=== PATIENT | female | born 1965 | race Caucasian/White ===

== ENCOUNTER → 2016-05-28 | Outpatient (REF) | payer BC | LOC: M LAB REF 14:07 | PROVIDERS: ATTEND Physician Assistant | DX: M79.1 Myalgia (principal) ==

== ENCOUNTER → 2016-05-31 | Outpatient (CLI) | payer BC ==
--- NOTE | 2016-06-01 10:40 | REP ---
Chest x-ray: Two views. History: Cough. Comparison chest x-ray November 09, 2015. Findings: The lungs are symmetrically aerated and clear. Pleural angles are sharp. Heart size is normal. Pulmonary vasculature is not increased. No significant bony abnormality is seen. Impression: Negative chest x-ray. Signed by Enrique Segovia MD 06/01/2016 11:05 A
== END ==
LOC: M WUC 17:57
PROVIDERS: ATTEND Physician Assistant
DX: R05 Cough (principal)

== ENCOUNTER → 2016-06-25 | Outpatient (CLI) | payer BC ==
[2016-06-25 18:12] LABS: BASO % 0.5 % (0.0-1.0); EOS # 0.1 K/mm3 (0.0-0.50); EOS % 1.6 % (0.0-3.0); LYMPH # 1.8 K/mm3 (1.5-4.5); LYMPH % 30.3 % (24.0-44.0); MEAN CORPUSCULAR HEMOGLOBIN 29.5 pg (27.0-33.0); MEAN CORPUSCULAR HGB CONC 33.2 g/dl (32.0-36.5); MEAN CORPUSCULAR VOLUME 88.8 fl (80.0-96.0); MONO # 0.3 K/mm3 (0.0-0.8); NEUTROPHILS # 3.4 K/mm3 (1.8-7.7); NEUTROPHILS % 60.7 % (36.0-66.0); WHITE BLOOD COUNT 5.6 K/mm3 (4.0-10.0)
[2016-06-25 20:35] LABS: IMMUNOGLOBULIN E 20.8 IU/ML (<100); IMMUNOGLOBULIN G 904 MG/DL (681-1648); IMMUNOGLOBULIN M 78.5 MG/DL (40-230)
[2016-07-01 14:12] LABS: ANTI TETANUS ANTIBODY 1.67 IU/mL (<0.10); STREP PNEUMO TYPE 12F <0.3 ug/mL (>1.3); STREP PNEUMO TYPE 18C 2.4 ug/mL (>1.3); STREP PNEUMO TYPE 19A 3.8 ug/mL (>1.3); STREP PNEUMO TYPE 19F 1.6 ug/mL (>1.3); STREP PNEUMO TYPE 23F <0.3 ug/mL (>1.3); STREP PNEUMO TYPE 6B 0.4 ug/mL (>1.3); STREP PNEUMO TYPE 7F 3.6 ug/mL (>1.3); STREP PNEUMO TYPE 9N 6.5 ug/mL (>1.3)
== END ==
LOC: M LAB 16:31
PROVIDERS: ATTEND Allergy & Immunology Allergy
DX: D84.9 Immunodeficiency, unspecified (principal); J30.9 Allergic rhinitis, unspecified

== ENCOUNTER → 2016-09-09 | Outpatient (REF) | payer BC | LOC: M LAB REF 16:22 | PROVIDERS: ATTEND Internal Medicine | DX: J32.9 Chronic sinusitis, unspecified (principal) ==

== ENCOUNTER → 2017-04-12 | Outpatient (CLI) | payer BC ==
--- NOTE | 2017-04-12 10:50 | REP ---
Chest two views HISTORY: Cough Comparison: 05/31/2016 The lungs are clear. The heart is normal in size. The pulmonary vasculature is normal in appearance. The bony structure is intact. IMPRESSION: No acute disease. Signed by Abhinav Gavin MD 04/12/2017 10:41 A
--- NOTE | 2017-04-12 11:15 | REP ---
KUB, ONE VIEW: HISTORY: Right upper quadrant pain. Air is present in small and large intestine. There are no air fluid levels or dilated loops of intestine. There is no pneumoperitoneum. A moderate amount of stool is present in the colon. IMPRESSION: Nonspecific bowel gas pattern. Signed by Abhinav Gavin MD 04/12/2017 12:31 P
[2017-04-12 13:22] LABS: BASO % 0.5 % (0.0-1.0); EOS # 0.1 10^3/uL (0.0-0.50); EOS % 1.9 % (0.0-3.0); IMMATURE GRANULOCYTE % 0.3 % (0-0); LYMPH # 1.5 10^3/uL (1.5-4.5); MEAN CORPUSCULAR HEMOGLOBIN 29.5 pg (27.0-33.0); MEAN CORPUSCULAR VOLUME 86.6 fl (80.0-96.0); MONO # 0.3 10^3/uL (0.0-0.8); NEUTROPHILS # 1.9 10^3/uL (1.8-7.7); NEUTROPHILS % 49.3 % (36.0-66.0); PLATELET COUNT, AUTOMATED 191 10^3/uL (150-450); RED CELL DISTRIBUTION WIDTH 12.9 % (11.5-14.5); WHITE BLOOD COUNT 3.8 10^3/uL (4.0-10.0)
[2017-04-12 13:51] LABS: ALBUMIN 4.4 GM/DL (3.2-5.2); ALBUMIN/GLOBULIN RATIO 1.47 (1.00-1.93); ALKALINE PHOSPHATASE 81 U/L (45-117); ALT/SGPT 45 U/L (12-78); AMYLASE 75 U/L (25-115); ANION GAP 8 MEQ/L (8-16); AST/SGOT 21 U/L (7-37); BILIRUBIN,TOTAL 0.7 MG/DL (0.2-1.0); BLOOD UREA NITROGEN 14 MG/DL (7-18); CALCIUM LEVEL 9.5 MG/DL (8.5-10.1); CARBON DIOXIDE LEVEL 29 MEQ/L (21-32); CHLORIDE LEVEL 105 MEQ/L (98-107); CREATININE FOR GFR 0.89 MG/DL (0.55-1.02); GLOMERULAR FILTRATION RATE > 60.0 (>51); GLUCOSE, FASTING 90 MG/DL (70-105); POTASSIUM SERUM 4.2 MEQ/L (3.5-5.1); SODIUM LEVEL 142 MEQ/L (136-145); TOTAL PROTEIN 7.4 GM/DL (6.4-8.2)
== END ==
LOC: M WUC 10:12
PROVIDERS: ATTEND Physician Assistant
DX: R10.11 Right upper quadrant pain (principal)

== ENCOUNTER → 2017-04-15 | Outpatient (CLI) | payer BC ==
--- NOTE | 2017-04-15 09:35 | REP ---
LIMITED ABDOMINAL ULTRASOUND: 04/15/2017. CLINICAL HISTORY. Right upper quadrant pain. No prior study. FINDINGS: The liver homogeneous in echotexture without focal hepatic mass, intrahepatic biliary dilatation or perihepatic ascites. Gallbladder shows normal wall thickness of 1.1 mm with no stone, sludge, pericholecystic fluid or mass. Common duct is 3.2 mm without a filling defect. Pancreas is somewhat limited in evaluation with gas shadowing obscuring the tail and some mild fatty changes head and neck region. Right kidney 11.5 x 5.5 x 3.9 cm. 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 There is no hydronephrosis. No stone visible. IMPRESSION: 1. Liver, gallbladder and common duct unremarkable. 2. Pancreas seen only in part with some mild fatty change. 3. Right kidney without hydronephrosis or stone. Signed by Munir Gunn MD 04/15/2017 08:27 P
== END ==
LOC: M RAD 07:53
PROVIDERS: ATTEND Physician Assistant
DX: R10.11 Right upper quadrant pain (principal)

== ENCOUNTER → 2017-04-21 | Outpatient (CLI) | payer BC ==
[~2017-04-21] MED LIST: GASTROGRAFIN SOLUTION 30ML (Q9963) As Ordered ONE; ISOVUE-370 76% 100ML VIAL (Q9967) As Ordered ONE
--- NOTE | 2017-04-21 10:49 | REP ---
CT abdomen pelvis without and with IV and bowel contrast: After IV contrast imaging is initially performed during the late arterial / portal venous phase of imaging. Scanning is performed again later during the delayed equilibrium phase of enhancement. Comparison is 08/12/2014. The patient is a history of right breast carcinoma. The visualized lung sheikh are unremarkable. The hepatic parenchyma, gallbladder, pancreas and spleen are normal size, homogeneous unremarkable all phases. The adrenals, kidneys and abdominal aorta are unremarkable on all phases. The bowel and mesentery are unremarkable. There is no bowel distension or obstruction. Pelvis: The uterus and adnexa are unremarkable. There is no ascites or adenopathy. The pelvic bowel loops are unremarkable. There are no lytic, blastic or destructive skeletal changes. Impression: Negative CT study of the abdomen and pelvis. Signed by Roger Haq MD 04/21/2017 10:41 A
== END ==
LOC: M RAD 07:39
PROVIDERS: ATTEND Internal Medicine
DX: R10.9 Unspecified abdominal pain (principal)
CPT/HCPCS: 74178; Q9963; Q9967

== ENCOUNTER → 2017-04-24 | Outpatient (CLI) | payer BC ==
--- NOTE | 2017-04-24 08:56 | REP ---
Soft-tissue neck CT study without contrast: History: Soft tissue swelling, mass and lump in the neck. The patient gives a history of prior breast carcinoma. Comparison soft tissue neck CT study is from January 18, 2016. Findings: Submandibular and parotid glands are normal and symmetric. Thyroid lobes are unremarkable. There is no evidence of suprahyoid or infrahyoid adenopathy or mass. Tonsillar and peritonsillar soft tissues are unremarkable. Visualized paranasal sinuses are clear. No intraorbital abnormality is appreciated. No bony destructive lesion is seen. The lung apices show no abnormality. There are minimal degenerative disc changes at C5-6 and C6-7 in the cervical spine. Impression: Negative soft-tissue neck CT study. Signed by Enrique Segovia MD 04/24/2017 10:56 A
== END ==
LOC: M RAD 07:31
PROVIDERS: ATTEND Allergy & Immunology Allergy
DX: R22.1 Localized swelling, mass and lump, neck (principal)

== ENCOUNTER → 2017-04-24 | Outpatient (CLI) | payer BC ==
--- NOTE | 2017-04-24 10:48 | REP ---
HIDA SCAN WITH GALLBLADDER EJECTION FRACTION: Following the intravenous administration of 6.6 mCi of technetium 99m mebrofenin, multiple images of the right upper quadrant are performed every 5 minutes for a period of 1 hour. The gallbladder is visualized at 50 minutes post injection. There is biliary to bowel transit at 15 minutes post injection with no scintigraphic evidence of cholecystitis. At the 1 hour evelyn, 8 ounces of Ensure Enlive was ingested and further imaging performed for 1 hour. Gallbladder activity is measured and the gallbladder ejection fraction is calculated to be 12% which is below normal. Normal ejection fraction is greater than 35%. IMPRESSION: Low gallbladder ejection fraction as discussed above at 12%. Signed by Roger Ortega MD 04/24/2017 10:51 A
== END ==
LOC: M RAD 07:34
PROVIDERS: ATTEND Internal Medicine
DX: R10.9 Unspecified abdominal pain (principal)
CPT/HCPCS: 78227; A9537; J2805

== ENCOUNTER 2017-07-22 07:59 | Day surgery (SDC) | payer BC ==
[2017-07-22] MEDS ORDERED: LIDOCAINE 1% SDV 5 ML VIAL SQ (08:15)
[2017-07-22] MEDS ORDERED: LR 1,000 ML IV ×2 (08:15→12:30)
[2017-07-22] MEDS ORDERED: ROCURONIUM BROMIDE 50 MG/5 ML VIAL As Ordered (09:22)
[2017-07-22] MEDS ORDERED: PROPOFOL 200 MG/20 ML VIAL As Ordered (09:22)
[2017-07-22] MEDS ORDERED: MIDAZOLAM INJ 2 MG/2 ML VIAL (J2250) As Ordered ×2 (09:23→10:25)
[2017-07-22] MEDS ORDERED: fentaNYL 100 MCG/2 ML INJECTION (J3010) As Ordered ×2 (09:24→11:45)
[2017-07-22] MEDS ORDERED: GLUCAGON FOR INJ 1 MG VIAL (J1610) As Ordered (09:50)
[2017-07-22] MEDS ORDERED: CONRAY-60 60% 50ML VIAL (Q9961) As Ordered (09:50)
[2017-07-22] MEDS ORDERED: LIDOCAINE 2% INJ 100 MG/5 ML SDV (FOR ANES.) As Ordered (10:06)
[2017-07-22] MEDS: CEFAZOLIN SOD 1 GM in APPROPRIATE DILUENT 1 EA IV (10:45)
[2017-07-22] MEDS: BUPIVACAINE/EPIN 0.5% 30 ML VIAL As Ordered (11:00)
[2017-07-22] MEDS ORDERED: NEOSTIGMINE 10 MG/10 ML VIAL (J2710) As Ordered (11:14)
[2017-07-22] MEDS ORDERED: dexameTHASONE 4 MG/ML 1ML VIAL (J1100) As Ordered (11:18)
[2017-07-22] MEDS ORDERED: KETOROLAC 60 MG/2 ML VIAL (J1885) As Ordered (11:18)
[2017-07-22] MEDS ORDERED: ONDANSETRON 4MG/2ML VIAL (J2405) As Ordered ×2 (11:19→13:43)
[2017-07-22] MEDS: fentaNYL 100 MCG/2 ML INJECTION (J3010) IV ×4 (11:51→12:06)
[2017-07-22] MEDS ORDERED: MORPHINE 10 MG/ML 1ML VIAL (J2270) As Ordered (12:03)
[2017-07-22] MEDS: MORPHINE 10 MG/ML 1ML VIAL (J2270) IV ×5 (12:10→12:30)
[2017-07-22] MEDS: NORCO, ANEXSIA 5/325MG TABLET (HYDROcodone/ACETAMINOPHEN) PO ×2 (12:56→13:15)
[2017-07-22] MEDS: ONDANSETRON 4MG/2ML VIAL (J2405) IV (13:50)
[2017-07-22] MEDS ORDERED: METOCLOPRAMIDE INJ 10MG/2ML VIAL (J2765) As Ordered (14:17)
[2017-07-22] MEDS: METOCLOPRAMIDE INJ 10MG/2ML VIAL (J2765) IV (14:30)
== END 2017-07-22 15:05 | disposition home or self-care (01) ==
LOC: M SDC 07:59
DX: K81.1 Chronic cholecystitis (principal); J45.909 Unspecified asthma, uncomplicated; K21.9 Gastro-esophageal reflux disease without esophagitis; J30.9 Allergic rhinitis, unspecified; D70.9 Neutropenia, unspecified; E66.9 Obesity, unspecified; R60.0 Localized edema; M15.0 Primary generalized (osteo)arthritis; I73.9 Peripheral vascular disease, unspecified; K44.9 Diaphragmatic hernia without obstruction or gangrene; Z88.1 Allergy status to other antibiotic agents; Z88.5 Allergy status to narcotic agent; Z88.8 Allergy status to other drugs, medicaments and biological substances; Z79.899 Other long term (current) drug therapy; Z80.3 Family history of malignant neoplasm of breast; Z87.891 Personal history of nicotine dependence; Z86.2 Personal history of diseases of the blood and blood-forming organs and certain disorders involving the immune mechanism; Z78.0 Asymptomatic menopausal state; Z82.3 Family history of stroke
CPT/HCPCS: 47562

== ENCOUNTER → 2019-01-30 | Outpatient (CLI) | payer BC ==
[~2019-01-30] MED LIST changes: +ALBU83IN INH; +BREO1INH3 INH; +CALC1TAB72 PO; +CYCL10TA PO; +DYMI137S; +FURO40TA2 PO; -GASTROGRAFIN SOLUTION 30ML (Q9963) As Ordered ONE; +HYDR-3713 PO; -ISOVUE-370 76% 100ML VIAL (Q9967) As Ordered ONE; +LORA-243 PO; +NEXI40CA PO; +POTA1TAB14 PO; +RANI300T; +SALI0.6528; +SUCR1TAB56; +TYLE650T35 PO; +VITA100067 PO
--- NOTE | 2019-01-30 12:42 | REP ---
CT ABDOMEN AND PELVIS WITHOUT CONTRAST: Clinical history: Melena and left lower quadrant pain. The study is limited without oral or IV contrast. CT performed without oral or IV contrast with sagittal and coronal reconstruction images. No infiltrate is seen in either lung base. The liver, spleen, adrenals, pancreas and kidneys are grossly unremarkable. The patient has had a prior cholecystectomy. There is no gross biliary dilatation. There is no hydronephrosis or nephrolithiasis identified. The abdominal aorta is normal in caliber with some minimal atherosclerotic calcification. There is no adenopathy. There is no free air or free fluid. There is no bowel wall thickening. I see no pelvis mass. The urinary bladder is not optimally distended and not optimally evaluated. IMPRESSION: Status post cholecystectomy. No definite acute pathology seen in the abdomen or pelvis. Limited examination without oral or IV contrast. Electronically Signed by Roger Ortega MD 01/31/2019 05:55 P
[2019-01-30 18:44] LABS: HEMATOCRIT 41.6 % (36.0-47.0); HEMOGLOBIN 13.8 g/dl (12.0-15.5); MEAN CORPUSCULAR HEMOGLOBIN 29.9 pg (27.0-33.0); MEAN CORPUSCULAR HGB CONC 33.2 g/dl (32.0-36.5); MEAN CORPUSCULAR VOLUME 90.2 fl (80.0-96.0); PLATELET COUNT, AUTOMATED 165 10^3/uL (150-450); RED BLOOD COUNT 4.61 10^6/uL (4.00-5.40); WHITE BLOOD COUNT 3.5 10^3/uL (4.0-10.0)
[2019-01-30 18:52] LABS: ALBUMIN 3.9 GM/DL (3.2-5.2); ALT/SGPT 32 U/L (12-78); BILIRUBIN,TOTAL 0.8 MG/DL (0.2-1.0); BLOOD UREA NITROGEN 18 MG/DL (7-18); CALCIUM LEVEL 8.9 MG/DL (8.5-10.1); CARBON DIOXIDE LEVEL 25 MEQ/L (21-32); CHLORIDE LEVEL 107 MEQ/L (98-107); CREATININE FOR GFR 0.83 MG/DL (0.55-1.30); GLOMERULAR FILTRATION RATE > 60.0 (>51); GLUCOSE, FASTING 82 MG/DL (70-100); LIPASE 113 U/L (73-393); POTASSIUM SERUM 4.1 MEQ/L (3.5-5.1); SODIUM LEVEL 141 MEQ/L (136-145); TOTAL PROTEIN 6.9 GM/DL (6.4-8.2)
== END ==
LOC: M RAD 10:42
PROVIDERS: ATTEND Internal Medicine Gastroenterology
DX: K92.1 Melena (principal)

== ENCOUNTER → 2019-01-31 | Outpatient (REF) | payer BC | LOC: M LAB REF 11:04 | PROVIDERS: ATTEND Surgery | DX: R10.32 Left lower quadrant pain (principal); R19.7 Diarrhea, unspecified ==

== ENCOUNTER → 2020-01-14 | Outpatient (CLI) | payer BC ==
[~2020-01-14] MED LIST changes: +ACET650T61 PO; +CYCL-707 PO; -CYCL10TA PO; +E-Z-PAQUE 96% w/w SUSP 176GM BTL As Ordered ONE; -TYLE650T35 PO
--- NOTE | 2020-02-07 10:08 | REP ---
SMALL BOWEL FOLLOW-THROUGH The procedure was performed under the direct supervision of Dr. Ortega. The images were reviewed with Dr. Ortega. The door captain film shows no organomegaly or pathological masses. The intestinal gas pattern is nonspecific. There are surgical clips noted in the right upper quadrant. Liquid barium was administered and the barium column was followed through the small bowel to the level of the terminal ileum. Small bowel transit time was approximately two hours. During fluoroscopy gentle palpation shows all loops are freely movable and pliable. There are no fixed or angulated loops. The small bowel mucosal pattern is normal in course and caliber. There is no transition to suggest a partial small bowel obstruction. Spot filming of the terminal ileum shows it to be unremarkable. IMPRESSION: Essentially unremarkable small bowel follow-through examination. 0.7 minutes of fluoroscopy time was utilized for this procedure. TYLER
== END ==
LOC: M RAD 08:19
PROVIDERS: ATTEND Internal Medicine Gastroenterology
DX: R19.7 Diarrhea, unspecified (principal); R10.33 Periumbilical pain; R14.0 Abdominal distension (gaseous); K44.9 Diaphragmatic hernia without obstruction or gangrene; K21.9 Gastro-esophageal reflux disease without esophagitis; Z80.0 Family history of malignant neoplasm of digestive organs

== ENCOUNTER → 2021-03-28 | Outpatient (CLI) | payer BC ==
[~2021-03-28] MED LIST changes: -E-Z-PAQUE 96% w/w SUSP 176GM BTL As Ordered ONE
--- NOTE | 2021-03-28 08:29 | REP ---
INDICATION: ABD PAIN COMPARISON: CT dated 01/30/2019 TECHNIQUE: Real time davis scale ultrasound examination using curved array transducer. FINDINGS: Liver is normal in contour, size, and echogenicity without focal hepatic lesions identified. Pancreas is incompletely evaluated due to interposed bowel gas. The gallbladder is surgically absent. No biliary ductal dilatation is appreciated and the common bile duct measures 5.6 mm diameter. Right kidney is normal in reniform shape without hydronephrosis and measures 10.4 x 5.7 x 3.9 cm. No ascites in the visualized right upper quadrant. IMPRESSION: Prior cholecystectomy. Otherwise relatively normal right upper quadrant ultrasound. <Electronically signed by Anthony Mott > 03/28/21 [id number]
== END ==
LOC: M RAD 07:30
PROVIDERS: ATTEND Internal Medicine Gastroenterology
DX: R10.11 Right upper quadrant pain (principal); Z90.49 Acquired absence of other specified parts of digestive tract

== ENCOUNTER → 2021-04-24 | Outpatient (CLI) | payer BC ==
[2021-04-24 14:05] LABS: ALBUMIN 4.2 GM/DL (3.2-5.2); BILIRUBIN,DIRECT 0.2 MG/DL (0.0-0.2); BILIRUBIN,TOTAL 0.7 MG/DL (0.2-1.0); TOTAL PROTEIN 7.4 GM/DL (6.4-8.2)
== END ==
LOC: M LAB 13:00
PROVIDERS: ATTEND Nurse Practitioner Family
DX: K21.9 Gastro-esophageal reflux disease without esophagitis (principal); R10.11 Right upper quadrant pain; R14.0 Abdominal distension (gaseous)

== ENCOUNTER → 2021-07-30 | Outpatient (REF) | LOC: M EMP 15:03 | PROVIDERS: ATTEND Family Medicine | DX: Z20.822 Contact with and (suspected) exposure to COVID-19 (principal) ==

== ENCOUNTER → 2022-10-03 | Outpatient (CLI) | payer BC ==
[~2022-10-03] MED LIST changes: +ALBU2.5V10 INH; -ALBU83IN INH; +POTA-298 PO; -POTA1TAB14 PO
[2022-10-03 12:32] LABS: BASO % 0.9 % (0.0-1.0); EOS # 0.1 10^3/uL (0.0-0.5); EOS % 2.6 % (0.0-3.0); HEMATOCRIT 41.8 % (36.0-47.0); HEMOGLOBIN 14.4 g/dl (12.0-15.5); LYMPH % 43.7 % (24.0-44.0); MEAN CORPUSCULAR HEMOGLOBIN 30.1 pg (27.0-33.0); MEAN CORPUSCULAR HGB CONC 34.4 g/dl (32.0-36.5); MEAN CORPUSCULAR VOLUME 87.3 fl (80.0-96.0); MONO # 0.3 10^3/uL (0.0-0.8); MONO % 7.2 % (2.0-8.0); NEUTROPHILS # 2.1 10^3/uL (1.5-8.5); NEUTROPHILS % 45.4 % (36.0-66.0); PLATELET COUNT, AUTOMATED 196 10^3/uL (150-450); RED BLOOD COUNT 4.79 10^6/uL (4.00-5.40); WHITE BLOOD COUNT 4.6 10^3/uL (4.0-10.0)
[2022-10-03 12:54] LABS: ALBUMIN 4.4 G/DL (3.2-5.2); ALKALINE PHOSPHATASE 81 U/L (46-116); ALT/SGPT 38 U/L (7.0-40); AST/SGOT 23 U/L (<34); BILIRUBIN,TOTAL 0.8 MG/DL (0.3-1.2); BLOOD UREA NITROGEN 13 MG/DL (9-23); CALCIUM LEVEL 8.9 MG/DL (8.5-10.1); CARBON DIOXIDE LEVEL 28 MMOL/L (20-31); CHLORIDE LEVEL 103 MMOL/L (98-107); CREATININE FOR GFR 0.74 MG/DL (0.55-1.30); GLOMERULAR FILTRATION RATE > 60.0 (>51); GLUCOSE, FASTING 82 MG/DL (60-100); POTASSIUM SERUM 3.8 MMOL/L (3.5-5.1); SODIUM LEVEL 139 MMOL/L (136-145); TOTAL PROTEIN 7.2 G/DL (5.7-8.2)
== END ==
LOC: M LAB 11:17
PROVIDERS: ATTEND Internal Medicine
DX: E78.00 Pure hypercholesterolemia, unspecified (principal); E78.5 Hyperlipidemia, unspecified

== ENCOUNTER → 2022-12-05 | Outpatient (CLI) | payer BC ==
[2022-12-05 17:40] LABS: HEMATOCRIT 42.4 % (36.0-47.0); HEMOGLOBIN 14.3 g/dl (12.0-15.5); MEAN CORPUSCULAR HEMOGLOBIN 29.4 pg (27.0-33.0); MEAN CORPUSCULAR HGB CONC 33.7 g/dl (32.0-36.5); MEAN CORPUSCULAR VOLUME 87.2 fl (80.0-96.0); PLATELET COUNT, AUTOMATED 219 10^3/uL (150-450); RED BLOOD COUNT 4.86 10^6/uL (4.00-5.40); WHITE BLOOD COUNT 5.2 10^3/uL (4.0-10.0)
[2022-12-05 17:46] LABS: LIPASE 39 U/L (12-53)
[2022-12-05 17:48] LABS: ALBUMIN 4.4 G/DL (3.2-5.2); ALKALINE PHOSPHATASE 83 U/L (46-116); ALT/SGPT 47 U/L (7.0-40); AST/SGOT 19 U/L (<34); BILIRUBIN,TOTAL 0.8 MG/DL (0.3-1.2); BLOOD UREA NITROGEN 15 MG/DL (9-23); CALCIUM LEVEL 9.4 MG/DL (8.5-10.1); CARBON DIOXIDE LEVEL 29 MMOL/L (20-31); CHLORIDE LEVEL 102 MMOL/L (98-107); GLOMERULAR FILTRATION RATE > 60.0 (>51); GLUCOSE, FASTING 95 MG/DL (60-100); POTASSIUM SERUM 3.9 MMOL/L (3.5-5.1); SODIUM LEVEL 139 MMOL/L (136-145); TOTAL PROTEIN 7.4 G/DL (5.7-8.2)
[2022-12-05 17:51] LABS: TOTAL 25(OH) VITAMIN D 42.8 NG/ML (20.0-100.0)
[2022-12-05 17:58] LABS: VITAMIN B12 LEVEL 530 PG/ML (211-911)
== END ==
LOC: M LAB 16:47
PROVIDERS: ATTEND Internal Medicine Gastroenterology
DX: R10.84 Generalized abdominal pain (principal); R19.5 Other fecal abnormalities; K62.5 Hemorrhage of anus and rectum; K44.9 Diaphragmatic hernia without obstruction or gangrene; E73.9 Lactose intolerance, unspecified; Z12.11 Encounter for screening for malignant neoplasm of colon; E55.9 Vitamin D deficiency, unspecified

== ENCOUNTER → 2022-12-05 | Outpatient (CLI) | payer BC ==
[2022-12-05 17:23] LABS: BASO % 0.7 % (0.0-1.0); EOS # 0.1 10^3/uL (0.0-0.5); EOS % 1.3 % (0.0-3.0); HEMATOCRIT 41.8 % (36.0-47.0); HEMOGLOBIN 14.3 g/dl (12.0-15.5); LYMPH # 2.3 10^3/uL (1.5-5.0); LYMPH % 42.2 % (24.0-44.0); MEAN CORPUSCULAR HEMOGLOBIN 29.9 pg (27.0-33.0); MEAN CORPUSCULAR HGB CONC 34.2 g/dl (32.0-36.5); MEAN CORPUSCULAR VOLUME 87.4 fl (80.0-96.0); MONO # 0.4 10^3/uL (0.0-0.8); MONO % 7.9 % (2.0-8.0); NEUTROPHILS # 2.6 10^3/uL (1.5-8.5); NEUTROPHILS % 47.9 % (36.0-66.0); PLATELET COUNT, AUTOMATED 218 10^3/uL (150-450); RED BLOOD COUNT 4.78 10^6/uL (4.00-5.40); WHITE BLOOD COUNT 5.4 10^3/uL (4.0-10.0)
[2022-12-05 17:52] LABS: ALBUMIN 4.5 G/DL (3.2-5.2); ALKALINE PHOSPHATASE 85 U/L (46-116); ALT/SGPT 49 U/L (7.0-40); AST/SGOT 21 U/L (<34); BILIRUBIN,TOTAL 0.7 MG/DL (0.3-1.2); BLOOD UREA NITROGEN 14 MG/DL (9-23); CALCIUM LEVEL 9.3 MG/DL (8.5-10.1); CARBON DIOXIDE LEVEL 27 MMOL/L (20-31); CHLORIDE LEVEL 104 MMOL/L (98-107); CREATININE FOR GFR 0.71 MG/DL (0.55-1.30); GLOMERULAR FILTRATION RATE > 60.0 (>51); GLUCOSE, FASTING 100 MG/DL (60-100); MAGNESIUM LEVEL 2.1 MG/DL (1.8-2.4); POTASSIUM SERUM 3.9 MMOL/L (3.5-5.1); SODIUM LEVEL 139 MMOL/L (136-145); TOTAL PROTEIN 7.4 G/DL (5.7-8.2)
[2022-12-05 17:55] LABS: THYROID STIMULATING HORMONE 2.257 uIU/ML (0.55-4.78)
== END ==
LOC: M LAB 16:49
PROVIDERS: ATTEND Internal Medicine
DX: E78.5 Hyperlipidemia, unspecified (principal)

== ENCOUNTER → 2023-12-09 | Outpatient (REF) | payer BC ==
[2023-12-09 18:52] LABS: FOLATE > 24.0 NG/ML (>5.4); VITAMIN B12 LEVEL 782 PG/ML (211-911)
== END ==
LOC: M LAB REF 16:31
PROVIDERS: ATTEND Internal Medicine
DX: Z51.81 Encounter for therapeutic drug level monitoring (principal); L65.9 Nonscarring hair loss, unspecified

== ENCOUNTER → 2023-12-25 | Outpatient (CLI) | payer BC | LOC: M RAD 07:21 | PROVIDERS: ATTEND Internal Medicine Gastroenterology | DX: R10.12 Left upper quadrant pain (principal); K59.00 Constipation, unspecified; K21.9 Gastro-esophageal reflux disease without esophagitis; R14.0 Abdominal distension (gaseous); K31.84 Gastroparesis | CPT/HCPCS: 78264; A9541 ==

== ENCOUNTER → 2024-06-03 | Outpatient (REF) | LOC: M EMP 09:44 | PROVIDERS: ATTEND Family Medicine | DX: Z01.89 Encounter for other specified special examinations (principal) ==

== ENCOUNTER → 2024-09-20 | Outpatient (CLI) | payer BC ==
[2024-09-20 14:02] LABS: APPEARANCE, URINE CLEAR (CLEAR); BACTERIA, URINE AUTO NEGATIVE (NEGATIVE); BILIRUBIN, URINE AUTO NEGATIVE (NEGATIVE); BLOOD, URINE BLOOD NEGATIVE (NEGATIVE); COLOR, URINE YELLOW (YELLOW); GLUCOSE, URINE (UA) AUTO NEGATIVE (NEGATIVE); KETONE, URINE AUTO NEGATIVE (NEGATIVE); LEUKOCYTE ESTERASE, URINE AUTO NEGATIVE (NEGATIVE); MUCUS, URINE SMALL (NEGATIVE); NITRITE, URINE AUTO NEGATIVE (NEGATIVE); PROTEIN, URINE AUTO NEGATIVE (NEGATIVE); RBC, URINE AUTO 1 /HPF (0-3); SPECIFIC GRAVITY URINE AUTO 1.024 (1.002-1.035); SQUAMOUS EPITHELIAL CELL UR AU 1 /HPF (0-6); UROBILINOGEN, URINE AUTO 0.2 mg/dL (0.0-2.0); WBC, URINE AUTO 1 /HPF (0-3)
[2024-09-20 14:33] LABS: BASO % 0.6 % (0.0-1.0); EOS # 0.1 10^3/uL (0.0-0.5); EOS % 1.6 % (0.0-3.0); HEMATOCRIT 42.1 % (36.0-47.0); LYMPH # 2.3 10^3/uL (1.5-5.0); LYMPH % 44.9 % (24.0-44.0); MEAN CORPUSCULAR HEMOGLOBIN 29.1 pg (27.0-33.0); MEAN CORPUSCULAR HGB CONC 33.3 g/dl (32.0-36.5); MEAN CORPUSCULAR VOLUME 87.5 fl (80.0-96.0); MONO # 0.4 10^3/uL (0.0-0.8); MONO % 8.4 % (2.0-8.0); NEUTROPHILS # 2.3 10^3/uL (1.5-8.5); NEUTROPHILS % 44.5 % (36.0-66.0); PLATELET COUNT, AUTOMATED 227 10^3/uL (150-450); RED BLOOD COUNT 4.81 10^6/uL (4.00-5.40); WHITE BLOOD COUNT 5.1 10^3/uL (4.0-10.0)
[2024-09-20 14:48] LABS: ALBUMIN 4.3 G/DL (3.2-5.2); ALKALINE PHOSPHATASE 77 U/L (35-104); ALT/SGPT 50 U/L (7.0-40); AST/SGOT 30 U/L (<34); BILIRUBIN,TOTAL 0.8 MG/DL (0.3-1.2); BLOOD UREA NITROGEN 17 MG/DL (9-23); CALCIUM LEVEL 9.4 MG/DL (8.5-10.1); CARBON DIOXIDE LEVEL 30 MMOL/L (20-31); CHLORIDE LEVEL 102 MMOL/L (98-107); CHOLESTEROL LEVEL 220 MG/DL (<200); CHOLESTEROL RISK RATIO 3.36 (<5); CREATININE FOR GFR 0.71 MG/DL (0.55-1.30); GLOMERULAR FILTRATION RATE > 90.0 (>51); GLUCOSE, FASTING 93 MG/DL (60-100); HDL CHOLESTEROL 65.3 MG/DL (>40); LDL CHOLESTEROL 129.3 MG/DL (<100); MAGNESIUM LEVEL 2.1 MG/DL (1.8-2.4); NON-HDL-C 154.7 MG/DL; POTASSIUM SERUM 3.6 MMOL/L (3.5-5.1); SODIUM LEVEL 139 MMOL/L (136-145); TOTAL PROTEIN 7.3 G/DL (5.7-8.2); TRIGLYCERIDES LEVEL 127 MG/DL (<150)
== END ==
LOC: M LAB 13:28
PROVIDERS: ATTEND Internal Medicine
DX: K21.9 Gastro-esophageal reflux disease without esophagitis (principal); E78.5 Hyperlipidemia, unspecified; E87.6 Hypokalemia; R73.09 Other abnormal glucose

== ENCOUNTER → 2024-12-08 | Outpatient (CLI) | payer BC | LOC: M RAD 07:46 | PROVIDERS: ATTEND Internal Medicine | DX: J45.909 Unspecified asthma, uncomplicated (principal) ==

== ENCOUNTER → 2024-12-27 | Outpatient (CLI) | payer BC ==
[2024-12-27 12:31] LABS: BASO # 0.0 10^3/uL (0.0-0.2); BASO % 0.8 % (0.0-1.0); EOS # 0.1 10^3/uL (0.0-0.5); EOS % 1.9 % (0.0-3.0); LYMPH # 1.8 10^3/uL (1.5-5.0); LYMPH % 47.2 % (24.0-44.0); MONO # 0.4 10^3/uL (0.0-0.8); MONO % 10.0 % (2.0-8.0); NEUTROPHILS # 1.5 10^3/uL (1.5-8.5); NEUTROPHILS % 39.8 % (36.0-66.0); PLATELET COUNT, AUTOMATED 216 10^3/uL (150-450)
[2024-12-27 12:58] LABS: ALT/SGPT 30 U/L (7.0-40); AST/SGOT 25 U/L (<34); CALCIUM LEVEL 9.3 MG/DL (8.5-10.1); CARBON DIOXIDE LEVEL 28 MMOL/L (20-31); CHLORIDE LEVEL 106 MMOL/L (98-107); CREATININE FOR GFR 0.75 MG/DL (0.55-1.30); GLOMERULAR FILTRATION RATE > 90.0 (>51); MAGNESIUM LEVEL 2.1 MG/DL (1.8-2.4); POTASSIUM SERUM 3.8 MMOL/L (3.5-5.1); SODIUM LEVEL 143 MMOL/L (136-145)
== END ==
LOC: M LAB 11:46
PROVIDERS: ATTEND Internal Medicine
DX: K21.9 Gastro-esophageal reflux disease without esophagitis (principal); E87.6 Hypokalemia

== ENCOUNTER → 2025-01-29 | Outpatient (CLI) | payer BC ==
[2025-01-29 10:44] LABS: BASO # 0.0 10^3/uL (0.0-0.2); BASO % 1.1 % (0.0-1.0); EOS # 0.1 10^3/uL (0.0-0.5); EOS % 2.5 % (0.0-3.0); LYMPH # 1.4 10^3/uL (1.5-5.0); LYMPH % 39.9 % (24.0-44.0); MONO # 0.3 10^3/uL (0.0-0.8); MONO % 7.8 % (2.0-8.0); NEUTROPHILS # 1.7 10^3/uL (1.5-8.5); NEUTROPHILS % 48.7 % (36.0-66.0); PLATELET COUNT, AUTOMATED 217 10^3/uL (150-450)
[2025-01-29 10:50] LABS: ERYTHROCYTE SEDIMENTATION RATE 15 mm/hr (0-30)
[2025-01-29 11:10] LABS: ALT/SGPT 36 U/L (7.0-40); AST/SGOT 27 U/L (<34); CALCIUM LEVEL 9.3 MG/DL (8.3-10.6); CARBON DIOXIDE LEVEL 29 MMOL/L (20-31); CHLORIDE LEVEL 104 MMOL/L (98-107); CREATININE FOR GFR 0.78 MG/DL (0.55-1.30); GLOMERULAR FILTRATION RATE 86.9 (>45); POTASSIUM SERUM 3.5 MMOL/L (3.5-5.1); SODIUM LEVEL 137 MMOL/L (136-145)
[2025-01-29 11:12] LABS: FREE T4 1.01 NG/DL (0.89-1.76)
[2025-01-29 12:31] LABS: COMPLEMENT C4 31.9 MG/DL (12-36)
[2025-01-29 12:32] LABS: RHEUMATOID FACTOR QUANT < 3.5 IU/ML (<14)
[2025-01-29 12:33] LABS: IMMUNOGLOBULIN E 12.8 IU/ML (0-378)
== END ==
LOC: M LAB 09:34
PROVIDERS: ATTEND Nurse Practitioner Family
DX: L50.1 Idiopathic urticaria (principal)

== ENCOUNTER → 2025-03-22 | Outpatient (CLI) | payer BC ==
[2025-03-22 11:34] LABS: BASO # 0.0 10^3/uL (0.0-0.2); BASO % 0.5 % (0.0-1.0); EOS # 0.1 10^3/uL (0.0-0.5); EOS % 2.1 % (0.0-3.0); LYMPH # 1.8 10^3/uL (1.5-5.0); LYMPH % 42.3 % (24.0-44.0); MONO # 0.4 10^3/uL (0.0-0.8); MONO % 8.6 % (2.0-8.0); NEUTROPHILS # 2.0 10^3/uL (1.5-8.5); NEUTROPHILS % 46.5 % (36.0-66.0); PLATELET COUNT, AUTOMATED 198 10^3/uL (150-450)
[2025-03-22 11:37] LABS: ALT/SGPT 35 U/L (7.0-40); AST/SGOT 46 U/L (<34); CALCIUM LEVEL 8.7 MG/DL (8.3-10.6); CARBON DIOXIDE LEVEL 25 MMOL/L (20-31); CHLORIDE LEVEL 105 MMOL/L (98-107); CREATININE FOR GFR 0.74 MG/DL (0.55-1.30); GLOMERULAR FILTRATION RATE > 90.0 (>45); MAGNESIUM LEVEL 2.1 MG/DL (1.8-2.4); POTASSIUM SERUM 4.2 MMOL/L (3.5-5.1); SODIUM LEVEL 141 MMOL/L (136-145)
== END ==
LOC: M LAB 10:16
PROVIDERS: ATTEND Internal Medicine
DX: Z00.00 Encounter for general adult medical examination without abnormal findings (principal); K21.9 Gastro-esophageal reflux disease without esophagitis; E78.5 Hyperlipidemia, unspecified; M54.50 Low back pain, unspecified